=== PATIENT | male | born 1965 | race Caucasian/White ===

== ENCOUNTER 2019-07-29 07:57 | Emergency (ER) | payer OTHER ==
[~2019-07-29] VITALS: Ht 172.7 cm; Wt 89.8 kg
[2019-07-29] MEDS ORDERED: THERAFLU MS SE1 EACH PO (08:11)
[2019-07-29] MEDS ORDERED: IBUP600 PO (08:42)
[2019-07-29] MEDS ORDERED: BENZ100A PO (08:42)
== END 2019-07-29 08:50 | disposition home or self-care (01) ==
LOC: ER 07:57
DX: J06.9 Acute upper respiratory infection, unspecified (principal); Z87.891 Personal history of nicotine dependence
CPT/HCPCS: 99283

== ENCOUNTER 2019-07-31 06:48 | Emergency (ER) | payer OTHER ==
[~2019-07-31] VITALS: Ht 172.7 cm; Wt 89.8 kg
[~2019-07-31 06:48] MED LIST: BENZ100A PO; IBUP600 PO; THERAFLU MS SE1 EACH PO
[2019-07-31] MEDS ORDERED: LEVO750 PO (07:44)
[2019-07-31] MEDS ORDERED: PROMETH-CODEIN 65 ML PO (07:44)
== END 2019-07-31 07:56 | disposition home or self-care (01) ==
LOC: ER 06:48
DX: J18.9 Pneumonia, unspecified organism (principal); Z87.891 Personal history of nicotine dependence
CPT/HCPCS: 71046; 99283-25

== ENCOUNTER 2020-12-15 13:04 | Day surgery (SDC) | payer OTHER ==
[~2020-12-15] VITALS: Ht 172.7 cm; Wt 104.4 kg
[~2020-12-15 13:04] MED LIST changes: +LEVO750 PO; +PROMETH-CODEIN 65 ML PO
[2020-12-15] MEDS ORDERED: FLUT1DIS2 INH (14:52)
== END 2020-12-15 16:05 | disposition home or self-care (01) ==
LOC: ORSCSDS 13:04
PROVIDERS: Surgery
PROC: 0DJD8ZZ Inspection of Lower Intestinal Tract, Via Natural or Artificial Opening Endoscopic (ICD-10-PCS; principal; 2020-12-15 14:15)
DX: Z12.11 Encounter for screening for malignant neoplasm of colon (principal); E66.9 Obesity, unspecified; Z68.35 Body mass index [BMI] 35.0-35.9, adult; Z87.891 Personal history of nicotine dependence; Z79.899 Other long term (current) drug therapy
CPT/HCPCS: J2704; J7120

== ENCOUNTER → 2021-11-25 | Outpatient (CLI) | payer OTHER ==
[~2021-11-25] MED LIST changes: +FLUT1DIS2 INH
[2021-11-26 16:07] LABS: Adenovirus F 40/41 Not Detected (NOT DETECT); Astrovirus Not Detected (NOT DETECT); Campylobacter Sp Not Detected (NOT DETECT); Cryptosporidium Not Detected (NOT DETECT); Cyclospora Cayetanensis Not Detected (NOT DETECT); E. Coli O157 Not Detected (NOT DETECT); Entamoeba Histolytica Not Detected (NOT DETECT); Enteroaggregative E. coli-EAEC Not Detected (NOT DETECT); Enteropathogenic E. coli-EPEC Not Detected (NOT DETECT); Enterotoxigenic E. coli-ETEC Not Detected (NOT DETECT); Giardia Lamblia Not Detected (NOT DETECT); Norovirus GI/GII Not Detected (NOT DETECT); Plesiomonas Shigelloides Not Detected (NOT DETECT); Rotavirus A Not Detected (NOT DETECT); Salmonella Sp Not Detected (NOT DETECT); Sapovirus Not Detected (NOT DETECT); Shiga Toxin-prod E. coli-STEC Not Detected (NOT DETECT); Shigella/Enteroin E. coli-EIEC Not Detected (NOT DETECT); Vibrio Cholerae Not Detected (NOT DETECT); Vibrio Sp Not Detected (NOT DETECT); Yersinia Enterocolitica Not Detected (NOT DETECT)
== END | disposition home or self-care (01) ==
LOC: LAB 13:18
PROVIDERS: Physician Assistant Surgical
DX: A06.1 Chronic intestinal amebiasis (principal)
CPT/HCPCS: 87507